=== PATIENT | female | born 1980 | race Caucasian/White ===

== ENCOUNTER → 2020-07-11 | Outpatient (CLI) | payer BC | END | disposition home or self-care (01) | LOC: LABWHC1 11:23 | PROVIDERS: ATTEND Internal Medicine | DX: Z20.828 Contact with and (suspected) exposure to other viral communicable diseases (principal) | CPT/HCPCS: U0003; C9803 ==

== ENCOUNTER → 2020-11-24 | Outpatient (CLI) | payer BC ==
--- NOTE | 2020-11-24 12:23 | US ---
EXAMINATION TYPE: US extremity nonvasc mass LT DATE OF EXAM: 11/24/2020 COMPARISON: NONE CLINICAL HISTORY: D17.22 benign lipomatous neoplasm of skin. palpable in left upper arm, no pain, not growing, no injury, no skin changes Soft tissue scan of medial arm produced a probable lipoma. 2.7 x 1.7 x 0.9cm isoechoic area noted un elpidio the transducer at area of palp. No vascularity seen. IMPRESSION: 1. There is a 2.7 cm isoechoic mass over the area of palpable abnormality. Differential diagnosis wou ld include a lipoma, other etiologies not excluded recommend follow-up MRI.
== END | disposition home or self-care (01) ==
LOC: RADUSWWP 11:47
PROVIDERS: ATTEND Internal Medicine
DX: R22.32 Localized swelling, mass and lump, left upper limb (principal); D17.22 Benign lipomatous neoplasm of skin and subcutaneous tissue of left arm

== ENCOUNTER → 2020-12-21 | Outpatient (CLI) | payer BC ==
--- NOTE | 2020-12-21 13:03 | MR ---
MRI left humerus within without contrast HISTORY: Palpable mass, abnormal ultrasound Correlation to ultrasound 11/24/2020 Multiplanar multisequence and postcontrast images obtained through the proximal left humerus followin g administration 9 cc Gadavist IV. Patient's palpable mass was marked with overlying skin marker. There is fat signal on all pulse sequences at the site of patient's clinical abnormality. Bone marrow signal is maintained, there is no evident soft tissue mass. No abnormal enhancement following contra st administration. IMPRESSION: Findings consistent with lipoma, correlate clinically
== END | disposition home or self-care (01) ==
LOC: RADMRIMAIN 08:57
PROVIDERS: ATTEND Internal Medicine
DX: R22.32 Localized swelling, mass and lump, left upper limb (principal)
CPT/HCPCS: 73220; A9585

== ENCOUNTER → 2021-05-01 | Outpatient (CLI) | payer BC | LOC: LABWHC1 14:05 | PROVIDERS: ATTEND Internal Medicine | DX: Z20.822 Contact with and (suspected) exposure to COVID-19 (principal) | CPT/HCPCS: U0003; C9803; U0005 ==